=== PATIENT | male | born 1980 | race Caucasian/White ===

== ENCOUNTER 2018-10-20 20:13 | Emergency (ER) | payer MEDICAID ==
[~2018-10-20] VITALS: Ht 175.3 cm; Wt 72.7 kg
[2018-10-20 20:18] VITALS: Ht 175.3 cm; Wt 72.7 kg
[2018-10-20] MEDS ORDERED: KLONOPIN1 MG PO (20:19)
[2018-10-20] MEDS ORDERED: NEURONTIN600 MG PO (20:19)
[2018-10-20] MEDS ORDERED: ULTRAM50 MG PO (20:19)
[2018-10-20] MEDS ORDERED: TENORMIN25 MG PO (20:19)
[2018-10-20] MEDS ORDERED: TRAZODONE HCL150 MG PO (20:19)
[2018-10-20] MEDS ORDERED: SKELAXIN800 MG PO (21:17)
[2018-10-20 21:52] VITALS: BP 110/73
== END 2018-10-20 21:52 | disposition home or self-care (01) ==
LOC: D.ER 20:13
DX: G44.209 Tension-type headache, unspecified, not intractable (principal); S16.1XXA Strain of muscle, fascia and tendon at neck level, initial encounter; W17.89XA Other fall from one level to another, initial encounter; Y93.89 Activity, other specified; Y92.89 Other specified places as the place of occurrence of the external cause

== ENCOUNTER 2019-01-17 10:49 | Emergency (ER) | payer MEDICAID ==
[~2019-01-17] VITALS: Ht 175.3 cm; Wt 75.0 kg
[~2019-01-17 10:49] MED LIST: KLONOPIN1 MG PO; NEURONTIN600 MG PO; SKELAXIN800 MG PO; TENORMIN25 MG PO; TRAZODONE HCL150 MG PO; ULTRAM50 MG PO
[2019-01-17 10:53] VITALS: Ht 175.3 cm; Wt 75.0 kg
[2019-01-17] MEDS ORDERED: TESSALON PERLE100 MG PO (12:00)
[2019-01-17] MEDS ORDERED: PREDNISONE10 MG PO (12:00)
[2019-01-17] MEDS ORDERED: ZPAK PO (12:00)
[2019-01-17] MEDS ORDERED: GUAIFENESI100 MG/5 M PO (12:01)
[2019-01-17 12:51] VITALS: BP 115/68
[2019-01-30 09:30] VITALS: Ht 175.3 cm; Wt 75.0 kg
== END 2019-01-17 12:51 | disposition home or self-care (01) ==
LOC: D.ER 10:49
DX: J20.9 Acute bronchitis, unspecified (principal); G43.909 Migraine, unspecified, not intractable, without status migrainosus

== ENCOUNTER 2019-01-30 07:29 | Day surgery (SDC) | payer MEDICAID ==
[~2019-01-30] VITALS: Ht 175.3 cm; Wt 79.4 kg
[~2019-01-30 07:29] MED LIST changes: +GUAIFENESI100 MG/5 M PO; +PREDNISONE10 MG PO; +TESSALON PERLE100 MG PO; +ZPAK PO
[2019-01-30 07:46] LABS: HEMATOCRIT 43.5 % (42.0-54.0); HEMOGLOBIN 14.9 g/dL (13.5-17.5); MCHC 34.3 g/dL (31.0-37.0); MCV 96.5 fL (80.0-100.0); MEAN PLATELET VOLUME 9.7 fL (7.4-10.4); RBC 4.51 10x6/uL (4.20-6.10); RDW 13.5 % (11.5-14.5); WBC 6.4 10x3/uL (4.8-10.8)
[2019-01-30] MEDS ORDERED: XANAX1 MG PO (09:27)
[2019-01-30] MEDS ORDERED: ALBUTEROL SULF8.5 GM INH (09:29)
[2019-01-30 09:30] VITALS: BP 105/60; Ht 175.3 cm; Wt 79.4 kg
[2019-01-30] MEDS ORDERED: SULFAMETHOXAZOL1 TA2 PO (13:12)
[2019-01-30] MEDS ORDERED: PERCOCET 7.5/321 TAB PO (13:12)
--- NOTE | 2019-01-30 14:21 | OP ---
PATIENT NAME: JONEL LEVINE MEDICAL RECORD: [id number] :80 LOCATION:[facility] ADMISSION DATE: SURGEON: SEGUN ARELLANO DO DATE OF OPERATION: 01/30/2019 PROCEDURE PERFORMED: Right long finger distal interphalangeal joint fusion. 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 INDICATIONS: Mr. Levine is a 38-year-old male who has had a chronic mallet for quite some time. He was tired of it catching on things when he is using his hand and really bothered him and wanted something done. I told him, surgically, the really only option would be a fusion at that joint. He was okay with that and is aware of the risks including, malunion, nonunion, malrotation, infection, bleeding, damage to nerves and vessels and need for further surgery. He signed the consent. SURGEON: Segun Arellano DO DESCRIPTION OF PROCEDURE: The patient was taken to the operative suite, given 2 grams of Ancef preoperatively. The right upper extremity was prepped and draped in sterile fashion. Timeout was performed, everyone was in agreement as to the correct side, site, patient and procedure. He was sedated and LMA was placed prior to this. Then, H incision was made over the DIP joint of the long finger and careful dissection was made down to the joint. The cartilage was denuded off of the distal phalanx and proximal phalanx at that joint. A K-wire was then used to advance through the distal phalanx centering it and then brought out and reduced the joint and then the middle phalanx. We then measured and a 30 screw was decided to be used. A drill was then used over the K-wire to go through the distal phalanx as well as into the middle phalanx. A 30 screw was then put on hand ratchet screwdriver and screwed into place, making nice compression at the DIP joint. The K-wire was then removed and this confirmed to be in good apposition on the AP and lateral x-ray. We were using a finger tourniquet and was up for approximately 15 minutes. This was released at that time and then digital block was performed at the base of the middle finger with 0.5% Marcaine with epinephrine. The incision site was then closed with 4-0 nylon in simple fashion and he was dressed with Xeroform, 4 x 4's, and then had a finger splint placed on the tip. He was awakened and taken to recovery in stable condition. BLOOD LOSS: Approximately 20 mL. COMPLICATIONS: None. 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
== END 2019-01-30 14:40 | disposition home or self-care (01) ==
LOC: D.OPS 07:29 → D.PAN 10:15 → D.OPS 10:15 → D.PAN 10:20 → D.OPS 10:30
PROVIDERS: Anesthesiology; ATTEND Orthopaedic Surgery
DX: M20.011 Mallet finger of right finger(s) (principal)

== ENCOUNTER 2019-04-28 18:27 | Emergency (ER) | payer MEDICAID ==
[~2019-04-28] VITALS: Ht 175.3 cm; Wt 75.5 kg
[~2019-04-28 18:27] MED LIST changes: +ALBUTEROL SULF8.5 GM INH; +PERCOCET 7.5/321 TAB PO; +SULFAMETHOXAZOL1 TA2 PO; +XANAX1 MG PO
[2019-04-28 18:33] VITALS: Ht 175.3 cm; Wt 75.5 kg
[2019-04-28 18:52] LABS: BASOPHILS 0.1 % (0-2); HEMATOCRIT 39.6 % (42.0-54.0); HEMOGLOBIN 13.6 g/dL (13.5-17.5); IMMATURE GRANULOCYTES 0.2 % (0-5); LYMPHOCYTES 41.1 % (15-50); MCH 32.5 pg (26.0-34.0); MCHC 34.3 g/dL (31.0-37.0); MCV 94.5 fL (80.0-100.0); MEAN PLATELET VOLUME 9.5 fL (7.4-10.4); MONOCYTES 5.9 % (2-11); NEUTROPHILS 50.7 % (40-80); RBC 4.19 10x6/uL (4.20-6.10); RDW 13.7 % (11.5-14.5); WBC 9.5 10x3/uL (4.8-10.8)
[2019-04-28 18:58] LABS: APPEARANCE CLEAR (CLEAR); BILIRUBIN NEGATIVE (NEGATIVE); COLOR YELLOW (YELLOW); GLUCOSE NEGATIVE (NEGATIVE); KETONE NEGATIVE (NEGATIVE); NITRITE NEGATIVE (NEGATIVE); PLATELET COUNT 188 10x3/uL (130-400); PROTEIN NEGATIVE (NEGATIVE); UROBILINOGEN NORMAL (NORMAL)
[2019-04-28 19:11] LABS: ANION GAP 11.1 mmol/L (8-16); CALCIUM 8.1 mg/dL (8.5-10.1); CARBON DIOXIDE 25.8 mmol/L (21.0-32.0); CREATININE - SERUM 1.2 mg/dL (0.6-1.3); POTASSIUM - SERUM 3.9 mmol/L (3.5-5.1)
[2019-04-28 19:17] LABS: ALBUMIN 3.5 g/dL (3.4-5.0); BILIRUBIN - TOTAL 0.2 mg/dL (0.2-1.3); PROTEIN - SERUM 6.3 g/dL (6.4-8.2)
[2019-04-28] MEDS ORDERED: TOPAMAX50 MG PO (20:22)
[2019-04-28] MEDS ORDERED: STERAPRED DS 1010 MG PO (20:59)
[2019-04-28] MEDS ORDERED: VIBRAMYCIN 100100 MG PO (20:59)
[2019-04-28 21:51] VITALS: BP 92/47
== END 2019-04-28 21:51 | disposition home or self-care (01) ==
LOC: D.ER 18:27
PROVIDERS: Family Medicine
DX: M54.16 Radiculopathy, lumbar region (principal); N43.3 Hydrocele, unspecified; N50.811 Right testicular pain; I10 Essential (primary) hypertension

== ENCOUNTER 2020-08-01 15:29 | Emergency (ER) | payer MEDICAID ==
[~2020-08-01] VITALS: Ht 175.3 cm; Wt 91.8 kg
[~2020-08-01 15:29] MED LIST changes: +STERAPRED DS 1010 MG PO; +TOPAMAX50 MG PO; +VIBRAMYCIN 100100 MG PO
[2020-08-01 15:33] VITALS: Ht 175.3 cm; Wt 91.8 kg
[2020-08-01] MEDS ORDERED: HYDROCODONE-AC1 EAC2 PO (15:35)
[2020-08-01] MEDS ORDERED: CYCLOBENZAPRINE10 MG PO (15:36)
[2020-08-01 17:57] VITALS: BP 124/77
== END 2020-08-01 17:58 | disposition home or self-care (01) ==
LOC: D.ER 15:29
DX: M79.671 Pain in right foot (principal); I10 Essential (primary) hypertension; J45.909 Unspecified asthma, uncomplicated; Z72.0 Tobacco use